=== PATIENT | male | born 1980 | race Caucasian/White ===

== ENCOUNTER 2017-10-15 12:55 | Emergency (ER) | payer SELFPAY ==
[~2017-10-15] VITALS: Ht 182.9 cm; Wt 66.0 kg
[~2017-10-15 12:55] MED LIST: CHOL1POW2; CHOL50006; DAPS100T; FLUC200T; MULT1TAB; RITO100T; TRUV; ZITH6
[2017-10-15] MEDS ORDERED: [UNRECOGNIZED DRUG - OTHER] (14:33)
[2017-10-15 15:45] VITALS: BP 118/73
== END 2017-10-15 16:07 | disposition home or self-care (01) ==
LOC: ER 12:55
DX: Z76.0 Encounter for issue of repeat prescription (principal); B19.20 Unspecified viral hepatitis C without hepatic coma; B20 Human immunodeficiency virus [HIV] disease; F17.200 Nicotine dependence, unspecified, uncomplicated; Z90.49 Acquired absence of other specified parts of digestive tract
CPT/HCPCS: 99281